=== PATIENT | female | born 1935 | race Caucasian/White ===

== ENCOUNTER 2019-11-14 06:46 | Inpatient (IN) ==
[2019-11-13 12:26] LABS: Albumin 3.5 G/DL (3.4-5.0); Bilirubin,Total 0.6 MG/DL (0.2-1.0); Calcium 9.6 MG/DL (8.5-10.1); Osmolality,Calculated 276.7 MOS/KG (273-304); Total Protein 7.3 G/DL (6.4-8.3)
[2019-11-13 12:28] LABS: Basophils % 0.4 % (0.0-0.8); Eosinophils # 0.1 10*3/uL (0.0-0.87); Eosinophils % 1.2 % (0.00-10.9); Hematocrit 46.6 VOL% (35.7-47.0); Hemoglobin 14.7 GM/DL (12.0-16.0); Immature Granulocytes % 0.3 %; Immature Granulocytes Absolute 0.02 #; Lymphocytes # 2.4 10*3/uL (1.4-4.0); Lymphocytes % 36.3 % (21.3-54.2); Mean Corpuscular HGB Conc 31.5 GM/DL (32-36); Mean Corpuscular Volume 95.9 FL (87-102); Mean Platelet Volume 10.4 FL (9.6-12.0); Monocytes % 7.8 % (1.7-12.7); Platelet Count 168 T/CUMM (130-400); Red Blood Count 4.86 MC/CUMM (3.8-5.5); Red Cell Distribution Width 13.8 % (9.3-17.3); White Blood Count 6.7 T/CUMM (4-12)
[~2019-11-14 06:46] MED LIST: ceFAZolin 1,000 MG VIAL ONE; ceFAZolin 1,000 MG in SYRINGE 1 EACH IV ONE
[2019-11-14] MEDS: LACTATED RINGERS 1,000 ML IV SCH ×4 (07:25→21:13)
[2019-11-14] MEDS ORDERED: NITROGLYCERIN DRIP 50 MG/250 ML BOTTLE IV ONE (07:47)
[2019-11-14] MEDS ORDERED: HEPARIN/NACL 0.9% 2 UNITS/ML 500 ML IV ONE (07:47)
[2019-11-14] MEDS ORDERED: PHENYLEPHRINE 10 MG/1 ML VIAL IV ONE ×2 (07:47→10:47)
[2019-11-14] MEDS ORDERED: ROPIVACAINE 0.5% 30 ML VIAL ONE (07:50)
[2019-11-14] MEDS ORDERED: DEXAMETHASONE 4 MG/1 ML VIAL ONE (07:50)
[2019-11-14] MEDS ORDERED: HEPARIN 5,000 UNIT/1 ML VIAL ONE (08:08)
[2019-11-14] MEDS ORDERED: LIDOCAINE 1% 20 ML VIAL ONE (08:08)
[2019-11-14] MEDS ORDERED: HYDROmorphone 2 MG/1 ML VIAL IV PRN ×3 (10:31→11:05)
[2019-11-14] MEDS ORDERED: ONDANSETRON 4 MG/2 ML VIAL IV PRN ×2 (10:31→11:05)
[2019-11-14] MEDS ORDERED: GLUCAGON 1 MG VIAL IM PRN (10:31)
[2019-11-14] MEDS ORDERED: NALOXONE 0.4 MG/ML VIAL IV PRN (10:31)
[2019-11-14] MEDS ORDERED: DEXTROSE 10% 250 ML BAG IV PRN (10:31)
[2019-11-14] MEDS ORDERED: PROMETHAZINE 25 MG/1 ML VIAL IM PRN (10:31)
[2019-11-14] MEDS ORDERED: DESFLURANE 1 UNIT/15 MINUTE INH ONE (10:46)
[2019-11-14] MEDS ORDERED: propofoL 200 MG/20 ML VIAL IV ONE (10:46)
[2019-11-14] MEDS ORDERED: LIDOCAINE 2% 5 ML VIAL ONE (10:46)
[2019-11-14] MEDS ORDERED: ETOMIDATE 40 MG/20 ML VIAL IV ONE (10:47)
[2019-11-14] MEDS ORDERED: ROCURONIUM 100 MG/10 ML VIAL IV ONE (10:47)
[2019-11-14] MEDS ORDERED: GLYCOPYRROLATE 0.4 MG/2 ML VIAL ONE (10:47)
[2019-11-14] MEDS ORDERED: SODIUM CHLORIDE 0.9% 250 ML IV ONE (10:47)
[2019-11-14] MEDS ORDERED: NEOSTIGMINE 10 MG/10 ML VIAL ONE (10:47)
[2019-11-14] MEDS ORDERED: hydrALAZINE 20 MG/1 ML VIAL ONE (10:47)
[2019-11-14] MEDS ORDERED: fentaNYL 100 MCG/2 ML VIAL ONE (10:47)
[2019-11-14] MEDS ORDERED: PHENYLEPHRINE DRIP 40 MG/250 ML PREMIX IV SCH (11:00)
[2019-11-14] MEDS ORDERED: NITROPRUSSIDE 100 MG in DEXTROSE 5% 250 ML IV SCH (11:00)
[2019-11-14] MEDS: rOPINIRole 1 MG TABLET PO SCH (20:34)
[2019-11-14] MEDS: SOTALOL 80 MG TABLET PO SCH (20:34)
[2019-11-14] MEDS: oxyCODONE/ACETAMINOPHEN 5-325 MG TABLET PO PRN (20:34)
[2019-11-15] MEDS: PARoxetine 20 MG TABLET PO SCH (08:11)
[2019-11-15] MEDS: ATORVASTATIN 40 MG TABLET PO SCH (08:11)
[2019-11-15] MEDS: SOTALOL 80 MG TABLET PO SCH ×2 (08:11→20:52)
[2019-11-15] MEDS: ASPIRIN EC 81 MG TABLET PO SCH (08:11)
[2019-11-15] MEDS: amLODIPine 10 MG TABLET PO SCH (08:11)
[2019-11-15] MEDS: LACTATED RINGERS 1,000 ML IV SCH (11:09)
[2019-11-15] MEDS: oxyCODONE/ACETAMINOPHEN 5-325 MG TABLET PO PRN ×2 (13:37→14:51)
[2019-11-15] MEDS ORDERED: PHENOL 1.4% THROAT SPRAY 177 ML BOTTLE PO PRN (15:26)
[2019-11-15] MEDS ORDERED: BENZOCAINE/MENTHOL LOZENGE 18/BOX PO PRN (15:26)
[2019-11-15] MEDS: rOPINIRole 1 MG TABLET PO SCH (20:52)
[2019-11-15] MEDS ORDERED: RIVAROXABAN 20 MG TABLET PO SCH (21:00)
[2019-11-16] MEDS: oxyCODONE/ACETAMINOPHEN 5-325 MG TABLET PO PRN (05:47)
[2019-11-16] MEDS: PARoxetine 20 MG TABLET PO SCH (08:35)
[2019-11-16] MEDS: ATORVASTATIN 40 MG TABLET PO SCH (08:35)
[2019-11-16] MEDS: SOTALOL 80 MG TABLET PO SCH (08:35)
[2019-11-16] MEDS: ASPIRIN EC 81 MG TABLET PO SCH (08:36)
[2019-11-16] MEDS: amLODIPine 10 MG TABLET PO SCH (08:36)
[2019-11-16 08:40] VITALS: BP 140/44
[2019-11-21] MEDS ORDERED: cloNIDine 0.2 MG/24 HR PATCH TRANSDERM SCH (09:00)
== END 2019-11-16 11:00 | disposition home health service (06) | DRG 39 ==
LOC: N.SDSINP 06:46 → N.OR 06:46 → N.SDSINP 10:31 → N.ICU 11:35 → EDSTATUS 16:15 → N.3E 11-15 09:38
PROVIDERS: ADMIT Surgery; ATTEND Surgery